=== PATIENT | female | born 1965 | race Two or more races ===

== ENCOUNTER 2024-06-25 06:15 | Day surgery (SDC) | payer OTHER ==
[2024-06-25] MEDS ORDERED: DIPHENHYDRAMINE HCL 50 MG/ML VIAL 1ML IV ONE ×2 (09:15)
[2024-06-25] MEDS ORDERED: fentaNYL CITRATE 50 MCG/ML AMPUL IV PUSH ONE (09:15)
[2024-06-25] MEDS ORDERED: MIDAZOLAM HCL 2 MG/2 ML VIAL IV ONE (09:15)
== END 2024-06-25 10:55 | disposition home or self-care (01) ==
LOC: AMB-ENDOS 06:15
PROVIDERS: ATTEND Internal Medicine
DX: D12.5 Benign neoplasm of sigmoid colon (principal); K62.1 Rectal polyp; K57.30 Diverticulosis of large intestine without perforation or abscess without bleeding; K21.9 Gastro-esophageal reflux disease without esophagitis; K20.80 Other esophagitis without bleeding; K29.00 Acute gastritis without bleeding; B96.81 Helicobacter pylori [H. pylori] as the cause of diseases classified elsewhere

== ENCOUNTER 2024-10-25 10:19 | Emergency (ER) | payer OTHER ==
[~2024-10-25] VITALS: Ht 160 cm; Wt 67.1 kg
[2024-10-25] MEDS ORDERED: LEVOTHYROXINE25 MCG (10:23)
[2024-10-25] MEDS ORDERED: METFORMIN HCL500 M3 (10:24)
[2024-10-25] MEDS ORDERED: CLONAZEPAM0.125 MG (10:25)
[2024-10-25] MEDS ORDERED: CYMBALTA (10:25)
[2024-10-25] MEDS ORDERED: 0.9 % SODIUM CHLORIDE 1,000 ML IV STA (10:40)
[2024-10-25] MEDS ORDERED: ONDANSETRON HCL 2 MG/ML VIAL IV STA (10:41)
[2024-10-25] MEDS ORDERED: FAMOTIDINE/PF 20 MG in 0.9 % SODIUM CHLORIDE 8 ML IV PUSH STA (10:41)
[2024-10-25 11:16] LABS: BASO % 0.5 % (0.1-1.2); EOS # 0.20 (0.04-0.54); EOS % 1.3 % (0.7-7.0); LYMPH # 2.16 (1.18-3.74); LYMPH % 14.3 % (19.3-53.1); MEAN PLATELET VOLUME 8.70 fl (9.4-12.4); MONO # 1.59 (0.24-0.82); MONO % 10.5 % (4.7-12.5); NEUT # 11.02 (1.56-6.13); NEUT % 72.9 % (34.0-71.1); RED CELL DISTRIBUTION WIDTH 12.8 % (11.6-14.4)
[2024-10-25 11:37] LABS: BUN CREA RATIO 18.0 (7.0-25.0); CREATININE SERUM 0.95 mg/dL (0.55-1.02); GFR 59.8; GLUCOSE FASTING 118.0 mg/dL (65-100); OSMOLALITY SERUM 288.0 MOSM/KG (275-295)
[2024-10-25 14:08] LABS: URINE APPEARANCE Clear; URINE BILIRRUBIN Negative (NEGATIVE); URINE BLOOD Negative; URINE COLOR Dark Yellow; URINE GLUCOSE Negative (NEGATIVE); URINE KETONE Trace (NEGATIVE); URINE LEUKOCYTE Negative; URINE NITRATE Negative; URINE UROBILINOGEN 0.2 E.U./dl
[2024-10-25 14:12] LABS: URINE BACTERIA 1849.1 uL (0.0-1933); URINE CAST 2.05 uL (0.0-1.40); URINE EPITHELIAL CELLS 23.5 uL (0.0-38.8); URINE RBC 7.7 uL (0.0-20.8); URINE WBC 11.6 uL (0.0-23.2)
[2024-10-25 14:31] LABS: URINE PROTEIN 100 (NEGATIVE)
[2024-10-25] MEDS ORDERED: METRONIDAZOLE/SODIUM CHLORIDE 500 MG/100 ML PIGGYBACK IV ONE (19:30)
[2024-10-25] MEDS ORDERED: HYOSCYAMINE SULFATE 0.125 MG TAB.SUBL SL ONE (19:30)
[2024-10-25] MEDS ORDERED: ACETAMINOPHEN 500 MG GEL..CAP PO ONE (19:30)
== END 2024-10-25 23:14 | disposition home or self-care (01) ==
LOC: ER 10:19
PROVIDERS: Emergency Medicine
DX: K52.89 Other specified noninfective gastroenteritis and colitis (principal); A05.8 Other specified bacterial foodborne intoxications